=== PATIENT | female | born 1990 | race American Indian/Alaskan Native ===

== ENCOUNTER 2017-09-20 01:09 | Emergency (ER) | payer SELFPAY ==
[2017-09-20 02:04] LABS: Basophils % (Auto) 0.8 % (0.0-1.8); Eosinophils % (Auto) 0.3 % (0.0-4.3); Hematocrit 39.6 % (30.3-42.9); Hemoglobin 13.4 gm/dl (10.1-14.3); Mean Corpuscular HGB Conc 34 % (30-34); Mean Corpuscular Hemoglobin 31 pg (28-32); Mean Corpuscular Volume 92 fl (79-97); Platelet Count 148 K/mm3 (140-440); Red Blood Count 4.32 M/mm3 (3.65-5.03); Red Cell Distribution Width 13.3 % (13.2-15.2); White Blood Count 7.7 K/mm3 (4.5-11.0)
[2017-09-20 02:22] LABS: Anion Gap 22 mmol/L; BUN/Creatinine Ratio 13; Blood Urea Nitrogen 10 mg/dL (7-17); Calcium 8.7 mg/dL (8.4-10.2); Carbon Dioxide 18 mmol/L (22-30); Chloride 105.7 mmol/L (98-107); Glucose 103 mg/dL (65-100); Potassium 3.4 mmol/L (3.6-5.0); Sodium 142 mmol/L (137-145)
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
[2017-09-20 04:56] VITALS: BP 130/80
== END 2017-09-20 04:55 | disposition home or self-care (01) ==
LOC: ED 01:09
DX: S02.2XXA Fracture of nasal bones, initial encounter for closed fracture (principal); F17.200 Nicotine dependence, unspecified, uncomplicated; Y04.0XXA Assault by unarmed brawl or fight, initial encounter; Y93.89 Activity, other specified; Y92.89 Other specified places as the place of occurrence of the external cause; Y99.8 Other external cause status
CPT/HCPCS: 36415; 70486; 80048; 84703; 85025

== ENCOUNTER 2017-10-04 03:55 | Emergency (ER) | payer OTHER ==
[2017-10-04 04:18] VITALS: BP 112/83
[2017-10-04] MEDS ORDERED: XYLOCAINE 1% 20 mL INFILTRATI NR (08:00)
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
[2017-10-04] MEDS ORDERED: NORCO 5/325 PO ONE (09:04)
== END 2017-10-04 09:26 | disposition home or self-care (01) ==
LOC: ED 03:55
DX: N61.1 Abscess of the breast and nipple (principal); F17.200 Nicotine dependence, unspecified, uncomplicated; F12.10 Cannabis abuse, uncomplicated
CPT/HCPCS: 99282

== ENCOUNTER 2017-10-13 18:44 | Emergency (ER) | payer SELFPAY ==
[2017-10-13 18:51] VITALS: BP 128/71
--- NOTE | 2017-10-13 20:14 | Emergency Department Report ---
HPI - General Chief Complaint: Laceration/Recheck/Suture Time Seen by Provider: 10/13/17 19:21 - HPI HPI: Is a 27-year-old female presents to ED for wound check and packing removal. She states she's been cleaning wound appropriately and wound is not infected. She states she's been taking her medications as prescribed. ED Past Medical Hx - Past Medical History Previous Medical History?: No Additional medical history: GALLSTONES currently. - Surgical History Past Surgical History?: No - Social History Smoking Status: Current Every Day Smoker Substance Use Type: None - Medications Home Medications: Home Medications Medication Instructions Recorded Confirmed Last Taken Type Cephalexin [Keflex] 500 mg PO TID #30 capsule 03/23/14 Unknown Rx Ibuprofen [Motrin 800 MG tab] 800 mg PO Q8H PRN #30 tablet 03/23/14 Unknown Rx HYDROcodone/APAP 5-325 [[place] 1 each PO Q6HR PRN #12 tablet 10/04/17 Unknown Rx 5-325 mg TAB] Ibuprofen [Motrin] 800 mg PO Q8HR PRN #30 tablet 10/04/17 Unknown Rx Sulfamethoxazole/Trimethoprim 1 each PO BID #20 tablet 10/04/17 Unknown Rx [Bactrim DS TAB] ED Review of Systems ROS: Stated complaint: PACKING REMOVAL Other details as noted in HPI Constitutional: denies: chills, fever Eyes: denies: eye pain, eye discharge, vision change ENT: denies: ear pain, throat pain Respiratory: denies: cough, shortness of breath, wheezing Cardiovascular: denies: chest pain, palpitations Endocrine: no symptoms reported Gastrointestinal: denies: abdominal pain, nausea, diarrhea Genitourinary: denies: urgency, dysuria, discharge Musculoskeletal: denies: back pain, joint swelling, arthralgia Skin: denies: rash, lesions Neurological: denies: headache, weakness, paresthesias Psychiatric: denies: anxiety, depression Hematological/Lymphatic: denies: easy bleeding, easy bruising Physical Exam - Physical Exam Vital Signs: Vital Signs 10/13/17 18:48 Temperature 98.2 F Pulse Rate 75 Respiratory 16 Rate Blood Pressure 128/71 O2 Sat by Pulse 100 Oximetry Physical Exam: GENERAL: Alert and oriented x3, no apparent distress, Normal Gait, atraumatic. LUNGS: Symetrical with respiration HEART: S1, S2 present, regular rate and rhythm BACK: Full range of motion, no spinal tenderness, nontender to palpation. BREAST: Left breast Mildly erythematous around the wound. No wound dehiscence, no signs of infection, nontender to palpation. packing removed with no problems. SKIN: Warm and dry, No lesions, No ulceration or induration present. ED Course Vital Signs 10/13/17 18:48 Temperature 98.2 F Pulse Rate 75 Respiratory 16 Rate Blood Pressure 128/71 O2 Sat by Pulse 100 Oximetry ED Medical Decision Making - Medical Decision Making 27-year-old female presents with packing removal and wound check ED course: Wound months moderately healing, noninfected, packing removed without any problems Patient tolerated procedure well. Discussed patient to keep warm compresses applied 3 times a day. Discussed the change dressing daily. Discussed to keep taking her medication and to follow-up with her primary care physician within 3 to 5 days Critical care attestation.: If time is entered above; I have spent that time in minutes in the direct care of this critically ill patient, excluding procedure time. ED Disposition Clinical Impression: Visit for wound check Disposition: DC- TO HOME OR SELFCARE Is pt being admited?: No Does the pt Need Aspirin: No Condition: Stable Instructions: Acute Wound Care (ED) Additional Instructions: Make sure to follow up with the primary care physician as discussed. Take all your medications as you've been prescribed. If you have any worsening symptoms or develop new symptoms please return to ED immediately. Referrals: LAUREN DEMPSEY MD [Primary Care Provider] - 3-5 Days [facility] [Outside] - 3-5 Days [facility] [Outside] - 3-5 Days Forms: Work/School Release Form(ED) Time of Disposition: 20:18
== END 2017-10-13 20:26 | disposition home or self-care (01) ==
LOC: ED 18:44
DX: Z48.01 Encounter for change or removal of surgical wound dressing (principal); F17.200 Nicotine dependence, unspecified, uncomplicated

== ENCOUNTER 2018-03-25 19:31 | Emergency (ER) | payer MEDICAID ==
[2018-03-25 21:27] LABS: Basophils # (Auto) 0.1 K/mm3 (0.0-0.1); Basophils % (Auto) 0.8 % (0.0-1.8); Eosinophils # (Auto) 0.1 K/mm3 (0.0-0.4); Eosinophils % (Auto) 0.8 % (0.0-4.3); Hematocrit 39.2 % (30.3-42.9); Hemoglobin 13.4 gm/dl (10.1-14.3); Lymphocytes # (Auto) 3.4 K/mm3 (1.2-5.4); Lymphocytes % (Auto) 30.8 % (13.4-35.0); Mean Corpuscular HGB Conc 34 % (30-34); Mean Corpuscular Hemoglobin 30 pg (28-32); Mean Corpuscular Volume 89 fl (79-97); Monocytes # (Auto) 0.7 K/mm3 (0.0-0.8); Monocytes % (Auto) 6.7 % (0.0-7.3); Platelet Count 186 K/mm3 (140-440); Red Blood Count 4.41 M/mm3 (3.65-5.03); Red Cell Distribution Width 13.4 % (13.2-15.2)
[2018-03-25 23:43] LABS: Bilirubin,Urine NEG (Negative); Blood,Urine NEG (Negative); Color,Urine Yellow (Yellow); Mucus,Urine 1+ /HPF; Protein,Urine <15 mg/dL mg/dL (Negative); WBC,Urine < 1.0 /HPF (0.0-6.0)
--- NOTE | 2018-03-26 00:21 | Ultrasound Report ---
FINAL REPORT EXAM: US OB < = 14 WEEKS FETUS HISTORY: vaginal bleeding TECHNIQUE: Transabdominal imaging was obtained the pelvis including Doppler interrogation of the uterus and adnexa. FINDINGS: The uterus measures 12.8 cm x 6.8 cm x 9.4 cm. Within the uterus is a well-formed gestational sac which contains a yolk sac and pole. The pole measures 28.7 mm and crown-rump length. This corresponds to a 9 week 5 day IUP. The heart rate is 162 BPM. There is a hypoechoic area adjacent to the gestational sac compatible with subchorionic bleed measuring 2.3 cm x 1.9 cm x 2.9 cm. Free fluid is not seen. The right ovary is normal size contour and blood flow measuring 3.5 cm x 2.5 cm x 3.7 cm. There is 1.2 cm cyst possibly representing corpus luteum cyst. The left ovary is normal size contour blood flow and echotexture measuring 2.9 cm x 1.8 cm x 2 cm. IMPRESSION: Single viable IUP, 9 weeks 5 days. The heart rate is 162 BPM. Subchorionic hemorrhage as described. 1.2 cm corpus luteum cyst in the right ovary. No evidence of free fluid.
--- NOTE | 2018-03-26 00:23 | Ultrasound Report ---
FINAL REPORT EXAM: US OB TRANSVAGINAL HISTORY: vaginal bleeding TECHNIQUE: Transvaginal imaging was obtained the pelvis including Doppler interrogation of the uterus and adnexa. FINDINGS: The uterus measures 12.8 cm x 6.8 cm x 9.4 cm. Within the uterus is a well-formed gestational sac which contains a yolk sac and pole. The pole crown-rump length is 28.7 mm compatible with 9 week 5 day IUP. The heart rate is 162 BPM. Adjacent to the gestational sac is a hypoechoic area compatible with a subchorionic hemorrhage measuring 2.3 cm x 1.9 cm x 2.9 cm. The right ovary measures 9.5 cm x 2.5 cm x 3.7 cm. Within the right ovary is a hypoechoic cystic structure measuring 1.2 cm in diameter. The blood flow is normal to the right ovary. The left ovary is normal size contour and echotexture measuring 2.9 cm x 1.8 cm x 2 cm. IMPRESSION: Single viable IUP, 9 weeks 5 days. The heart rate is 162 BPM. Subchorionic hemorrhage as described. 1.2 cm cyst in the right ovary possibly representing corpus luteum cyst. No evidence of free fluid.
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
[2018-03-26 03:08] VITALS: BP 121/74
== END 2018-03-26 03:22 | disposition home or self-care (01) ==
LOC: ED 19:31
DX: O20.0 Threatened abortion (principal); Z3A.09 9 weeks gestation of pregnancy
CPT/HCPCS: 36415; 76801; 76817; 81001; 84702; 85025; 86850; 86900; 86901; 99284